=== PATIENT | female | born 1945 | race Hispanic/Latino ===

== ENCOUNTER → 2018-08-07 | Day surgery (SDC) | payer MEDICARE ==
[2018-08-03 11:26] LABS: BASOPHILS % 0.4 % (0.0-1.0); EOSINOPHILS # (AUTO) 0.1 (0.0-0.4); EOSINOPHILS % 1.7 % (0.0-6.0); HEMATOCRIT 42.9 % (34.2-44.1); LYMPHOCYTES # (AUTO) 2.3 (1.0-3.2); LYMPHOCYTES % 32.4 % (18.0-39.1); MEAN CORPUSCULAR HEMOGLOBIN 28.2 pg (28-32); MEAN CORPUSCULAR HGB CONC 32.6 g/dL (31-35); MEAN CORPUSCULAR VOLUME 86.5 fL (81-99); MONOCYTES # (AUTO) 0.6 (0.2-0.8); MONOCYTES % 8.9 % (4.4-11.3); NEUTROPHILS # (AUTO) 4.1 (2.1-6.9); NEUTROPHILS % 56.3 % (38.7-80.0); PLATELET COUNT 163 x10e3/uL (140-360); RED BLOOD COUNT 4.96 x10e6/uL (3.6-5.1); RED CELL DISTRIBUTION WIDTH 13.1 % (11.7-14.4)
--- NOTE | 2018-08-03 11:36 | Diagnostic Imaging Report ---
EXAMINATION: PA and lateral views of the chest. COMPARISON: None CLINICAL HISTORY: Preoperative evaluation, carpal tunnel surgery DISCUSSION: Lines/tubes: None. Lungs: The lungs are well inflated and clear. No pneumonia or pulmonary edema. Pleura: No pleural effusion or pneumothorax. Heart and mediastinum: The cardiomediastinal silhouette is normal. Bones and soft tissues: No acute bony abnormalities. IMPRESSION: No acute cardiopulmonary abnormalities. Signed by: Dr. Dao Edmondson M.D. on 08/03/2018 11:33 AM
[2018-08-03 11:53] LABS: ANION GAP 15.1 mmol/L (8-16); CALCIUM 9.8 mg/dL (8.4-10.2); CREATININE, SERUM 0.95 mg/dL (0.57-1.11); POTASSIUM 5.1 mmol/L (3.5-5.1)
[~2018-08-07] MED LIST: CARVEDILOL12.5 MG PO; CEFAZOLIN SOD 1 GM/NS 50ML 50 ML IV ONE; CRESTOR10 MG PO; DEXAMETHASONE SOD PHOS INJ 4 MG/ML VIAL ONE; FENTANYL CITRATE/PF 100MCG/2 ML INJ ONE; GLIPIZIDE5 MG PO; KETOROLAC TROMETHAMINE 30 MG/ML VIAL ONE; LIDOCAINE HCL 2% LOCAL INJ 5 ML SDV VIAL INJ ONE; LISINOPRIL10 MG PO; LOSARTAN POTAS100 MG PO; MECLIZINE HCL12.5 MG PO; MEPERIDINE HCL INJ 25 MG/ML VIAL ONE; NAPROXEN250 MG PO; OMEPRAZOLE40 MG PO; ONDANSETRON HCL INJ 2MG/ML 2ML 2 MG/ML VIAL ONE; PANTOPRAZOLE SO40 MG PO; PROPOFOL IV EMULSION 10 MG/ML 20 ML VIAL ONE; SEVOFLURANE INHAL SOLN 250 ML PEN BTL ONE; SIMVASTATIN20 MG PO; TOPAMAX25 MG PO; ULTRAM50 MG PO
--- OUTSIDE RECORDS SUMMARY | 2018-08-07 07:28 | XMS REPORT ---
Author [facility] Address Unknown Phone Unavailable Care Team Providers Care Agricultural Extension Agent Name Role Phone MAGI NATION Unavailable Unavailable Problems This patient has no known problems. Allergies, Adverse Reactions, Alerts This patient has no known allergies or adverse reactions. Medications This patient has no known medications. Results Test Description Test Time Test Comments Text Results Atomic Results Result Comments CHEST 2 VIEWS 2018-08-03 11:31:00 [facility] [address] [place] [address] Patient Name: LILY PALACIO MR #: [id number] : 1945 Age/Sex: 72/F Req #: [id number] Adm Physician: Ordered by: MAGI NATION MD Report #: [id number] Location: OR Room/Bed: Procedure: [id number] DX/CHEST 2 VIEWS Exam Date: 08/03/18 Exam Time: 1116 REPORT STATUS: Signed EXAMINATION: PA and lateral views of the chest. COMPAR GITA: None CLINICAL HISTORY: Preoperative evaluation, carpal tunnel surgery DISCUSSION: Lines/tubes: None. Lungs: The lungs are well inflated and clear. No pneumonia or pulmonary edema. Pleura: No pleural effusion or pneumothorax. Heart and mediastinum: The cardiomediastinal silhouette is normal. Bones and soft tissues: No acute bony abnormalities. IMPRESSION: No acute cardiopulmonary abnormalities. Signed by: Dr. Chandler Javier M.D. on 08/03/2018 11:33 AM Dictated By: CHANDLER JAVIER MD [id number] Transcribed By: THELMA on 08/03/18 113 COPY TO: MAGI NATION MD
--- OUTSIDE RECORDS SUMMARY | 2018-08-07 07:28 | XMS REPORT | Continuity of Care Document ---
Author Author [facility] Interface Address Unknown Phone Unavailable Problems Problem Status Onset Date Classification Date Reported Comments Source M79.672 - PAIN IN LEFT FOOT Active 11/13/2015 SANDIE Begum Medications Medication Details Route Status Patient Instructions Ordering Provider Order Date Source Allergies, Adverse Reactions, Alerts Substance Category Reaction Severity Reaction type Status Date Reported Comments Source Immunizations Immunization Date Given Site Status Last Updated Comments Source Results Order Name Results Value Reference Range Date Interpretation Comments Source Digital Mammo Screening Chaz MA Digital Mammo Screening Chaz MA - DIGITAL MAMMO SCREENING CHAZ MA BILATERAL DIGITAL SCREENING MAMMOGRAM WITH CAD: 12/07/2015 CLINICAL: Z12.39 Encounter For Other Screening For Malignant Neoplasm Of Breast. Current study was evaluated with a Computer Aided Detection (CAD) system. Comparison is made to exam dated: 12/01/2014 mammogram - [facility]. The tissue of both breasts is almost entirely fat. There are benign calcifications in both breasts. No significant masses, calcifications, or other findings are seen in either breast. There has been no significant interval change. IMPRESSION: BENIGN There is no mammographic evidence of malignancy. A 1 year screening mammogram is recommended. Sabi Brand M.D. to/penrad:12/08/2015 08:10:01 Gift Shop Clerk: Corin MAHAJAN(Bisi)(Juan Alberto), [facility] This exam was dictated and interpreted by [id number] at [facility]. letter sent: Normal exam Mammogram BI-RADS: 2 Benign 12/07/2015 - - Read by: Sabi Brand MD Dictated Date/time: 12/08/15 08:10 Electronically Signed by: Sabi Brand MD 12/08/15 08:10 FINAL REPORT SANDIE Begum Foot 2 views DX Foot 2 views DX Left Foot x-ray series 2 views History: 70-year-old female with left foot pain. Comparison: None. Findings: There is no evidence for fracture or osseous destruction. Mild osteoarthritic changes seen at the forefoot the interphalangeal joint spaces are narrow. The metatarsals appear intact. The mid tarsal bones and hindfoot appear normal. The plantar arch is maintained. No radiopaque foreign bodies are seen. 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 No acute bone abnormalities. 11/13/2015 - - Read by: Lon Reyes MD Dictated Date/time: 11/13/15 12:12 Electronically Signed by: Lon Reyes 11/13/15 12:13 FINAL REPORT SANDIE Begum Vital Signs Vital Sign Value Date Comments Source Encounters Location Location Details Encounter Type Encounter Number Reason For Visit Attending Provider ADM Date DC Date Status Source Procedures Procedure Code Date Perfomer Comments Source
--- NOTE | 2018-08-07 10:17 | Operative Report ---
DATE OF PROCEDURE: August 07, 2018 FAMILY CONSUMER SCIENCE TEACHER: None PREOPERATIVE DIAGNOSIS: Right carpal tunnel syndrome. POSTOPERATIVE DIAGNOSIS: Right carpal tunnel syndrome. PROCEDURE: Right endoscopic carpal tunnel release. INDICATIONS: The patient is a 72-year-old woman who has clinic signs and symptoms consistent with right carpal tunnel syndrome. She has failed conservative management and would like to proceed with a right carpal tunnel release. The risks and benefits have been explained. She states she understands and wishes to proceed. PROCEDURE: The patient was brought to the operating room. She was placed under general anesthetic. Prophylactic antibiotics were given in the holding area. The upper extremity was prepped and draped in a sterile manner. A well-padded tourniquet was placed on the upper arm and inflated to 250 mmHg. An operative time out was performed. A 1-cm incision was made over the flexion crease of the wrist. The palmaris longus was retracted to the radial side of the wound. The flexor retinaculum was elevated and incised with a pair of sharp tenotomy scissors. An elevator was used to tease the tenosynovium off the undersurface of the transverse carpal ligament. Dilators were placed, and the hook of the hamate was palpated. The Micro-Aire endoscope was then placed into the carpal tunnel. The undersurface of the ligament was cleanly visualized without evidence of soft tissue interposition. The knife was deployed, and the ligament was cut from distal to proximal. Full-thickness cut was noted. The proximal retinaculum was then incised under direct visualization using a pair of blunt Metzenbaum scissors. The wound was irrigated and closed with 2 interrupted 4-0 nylon stitches. A sterile bandage was applied, and the patient was extubated. The patient was transferred to the recovery room in stable condition. Blood loss was less than 5 mL, and at the end of the procedure needle and sponge counts were correct. Job#: [id number] DARCY
[2018-08-07 11:15] VITALS: BP 107/55
== END | disposition home or self-care (01) ==
LOC: OR 07:26
PROVIDERS: ATTEND Specialist
DX: G56.01 Carpal tunnel syndrome, right upper limb (principal); I10 Essential (primary) hypertension; E11.9 Type 2 diabetes mellitus without complications; Z79.84 Long term (current) use of oral hypoglycemic drugs; K21.9 Gastro-esophageal reflux disease without esophagitis; M75.41 Impingement syndrome of right shoulder; Z01.810 Encounter for preprocedural cardiovascular examination; Z01.812 Encounter for preprocedural laboratory examination; Z01.818 Encounter for other preprocedural examination; Z88.5 Allergy status to narcotic agent; Z88.2 Allergy status to sulfonamides
CPT/HCPCS: 29848; 36415 ×2; 71046; 80048; 82948; 85025; 93005; J0690; J1100; J1885; J2001; J2175; J2405; J2704

== ENCOUNTER → 2020-04-28 | Day surgery (SDC) | payer MEDICARE, OTHER ==
[2020-04-23 13:49] LABS: BASOPHILS % 0.5 % (0.0-1.0); EOSINOPHILS # (AUTO) 0.1 (0.0-0.4); EOSINOPHILS % 1.7 % (0.0-6.0); HEMATOCRIT 42.4 % (34.2-44.1); HEMOGLOBIN 13.7 g/dL (12.0-16.0); LYMPHOCYTES # (AUTO) 2.5 (1.0-3.2); LYMPHOCYTES % 33.9 % (18.0-39.1); MEAN CORPUSCULAR HEMOGLOBIN 27.8 pg (28-32); MEAN CORPUSCULAR HGB CONC 32.3 g/dL (31-35); MONOCYTES # (AUTO) 0.7 (0.2-0.8); MONOCYTES % 9.6 % (4.4-11.3); NEUTROPHILS % 53.9 % (38.7-80.0); PLATELET COUNT 198 x10e3/uL (140-360); RED BLOOD COUNT 4.93 x10e6/uL (3.6-5.1)
--- NOTE | 2020-04-23 14:06 | Diagnostic Imaging Report ---
Exam: CHEST 2 VIEWS Date: 04/23/2020 2:02 PM INDICATION: ^[id number] ^[id number] ^PRE OP Comparison: 08/03/2018 FINDINGS: Lines/Tubes:Stable cholecystectomy clips in the right upper quadrant. Lungs:The lungs are well inflated. No focal consolidation or pulmonary edema. Pleura:No pleural effusion. No pneumothorax. Heart/Mediastinum:The cardiomediastinal silhouette is normal in size and contour. Bones/Soft Tissues: No acute osseous abnormality. Upper abdomen: Unremarkable. IMPRESSION: Stable exam without acute intrathoracic process. Signed by: Steve Medina MD on 04/23/2020 2:03 PM
[2020-04-23 14:17] LABS: ANION GAP 12.9 mmol/L (8-16); CALCIUM 9.5 mg/dL (8.4-10.2); CREATININE, SERUM 1.11 mg/dL (0.57-1.11); POTASSIUM 3.9 mmol/L (3.5-5.1)
[~2020-04-28] MED LIST changes: +ACETAMINOPHEN325 M1 PO; +ALENDRONATE SOD70 MG PO; +ASPIRIN81 MG PO; +CELEBREX100 MG PO; +DILTIAZEM 24HR120 M1 PO; +HYDROMORPHONE 1MG/1ML INJ ONE; -KETOROLAC TROMETHAMINE 30 MG/ML VIAL ONE; +LIPITOR10 MG PO; +VIT B12 PO; +VIT D2 PO
[2020-04-28 09:45] VITALS: BP 135/64
--- NOTE | 2020-04-28 11:04 | Operative Report ---
DATE OF PROCEDURE: 04/28/2020 SURGEON: Dmitry Blanco MD SOLAR THERMAL TECHNICIAN: Mendez Robles PA-C. PREOPERATIVE DIAGNOSIS: Right knee medial meniscal tear. POSTOPERATIVE DIAGNOSIS: Right knee medial meniscal tear. PROCEDURE: Right knee arthroscopy, partial medial meniscectomy. INDICATIONS: The patient is a 74-year-old lady, who has clinic signs and mechanical symptoms consistent with a tear of the medial meniscus in her right knee. She has failed conservative management and would like to proceed with arthroscopy. She is familiar with the procedure, in that she had similar symptoms in her left knee that responded to arthroscopy. We have reviewed the risks and benefits of the procedure. All of her questions have been answered. She states she understands and wishes to proceed. PROCEDURE IN DETAIL: The patient was brought to the operating room and placed under general anesthetic. Her right lower extremity was prepped and draped in a sterile manner. A tourniquet was placed on the upper thigh and inflated to 300 mmHg. A preoperative time-out was performed. Standard arthroscopy portals were established. The knee was insufflated with sterile saline and systematically inspected. The patellofemoral groove and suprapatellar pouch were unremarkable. The medial and lateral gutter were inspected and noted to be free of loose bodies. There was minimal arthritic changes. The medial compartment was inspected and probed. There was a complex tear of the posterior horn of the medial meniscus with a radial fragment. This was debrided back to a stable margin using a combination of biting forceps and a mechanical shaver. The articular surfaces of the medial femoral condyle and medial tibial plateau were well preserved. Less than 15% of the meniscus was excised. The cruciate ligaments were inspected and probed. There was no abnormality. The lateral compartment was inspected. This was tight, but there was no evidence of any significant tear of the lateral meniscus. There were some minor fraying of the free edge of the lateral meniscus. The knee was thoroughly irrigated. The arthroscopic instruments were removed. The portal incisions were closed with nylon stitches. A sterile bandage was applied. There was no blood loss and all needle and sponge counts were correct. Dmitry Blanco MD DR/YUMIKO /[id number]
== END | disposition home or self-care (01) ==
LOC: OR 05:20
PROVIDERS: ATTEND Specialist
DX: S83.231A Complex tear of medial meniscus, current injury, right knee, initial encounter (principal); E11.22 Type 2 diabetes mellitus with diabetic chronic kidney disease; I12.9 Hypertensive chronic kidney disease with stage 1 through stage 4 chronic kidney disease, or unspecified chronic kidney disease; N18.9 Chronic kidney disease, unspecified; W19.XXXA Unspecified fall, initial encounter; Z88.6 Allergy status to analgesic agent; Z88.2 Allergy status to sulfonamides; Z01.810 Encounter for preprocedural cardiovascular examination; Z01.812 Encounter for preprocedural laboratory examination; Z01.818 Encounter for other preprocedural examination; Z11.59 Encounter for screening for other viral diseases; Z79.84 Long term (current) use of oral hypoglycemic drugs; Z79.82 Long term (current) use of aspirin; Z68.36 Body mass index [BMI] 36.0-36.9, adult
CPT/HCPCS: 29881; 36415 ×2; 71046; 80048; 82948; 85025; 93005; J0690; J1100; J1170; J2001; J2175; J2405; J2704; J3010; U0002

== ENCOUNTER → 2020-07-23 | Outpatient (CLI) | payer MEDICARE ==
[~2020-07-23] MED LIST changes: -CEFAZOLIN SOD 1 GM/NS 50ML 50 ML IV ONE; -DEXAMETHASONE SOD PHOS INJ 4 MG/ML VIAL ONE; -FENTANYL CITRATE/PF 100MCG/2 ML INJ ONE; -HYDROMORPHONE 1MG/1ML INJ ONE; -LIDOCAINE HCL 2% LOCAL INJ 5 ML SDV VIAL INJ ONE; -MEPERIDINE HCL INJ 25 MG/ML VIAL ONE; -ONDANSETRON HCL INJ 2MG/ML 2ML 2 MG/ML VIAL ONE; -PROPOFOL IV EMULSION 10 MG/ML 20 ML VIAL ONE; -SEVOFLURANE INHAL SOLN 250 ML PEN BTL ONE
== END ==
LOC: RAD 09:37
PROVIDERS: ATTEND Internal Medicine Critical Care Medicine
DX: U07.1 COVID-19 (principal); R06.00 Dyspnea, unspecified; I49.3 Ventricular premature depolarization; K21.9 Gastro-esophageal reflux disease without esophagitis; Z68.33 Body mass index [BMI] 33.0-33.9, adult
CPT/HCPCS: 71046

== ENCOUNTER → 2020-08-25 | Outpatient (CLI) | payer MEDICARE | LOC: RAD 10:33 | PROVIDERS: ATTEND Internal Medicine Critical Care Medicine | DX: U07.1 COVID-19 (principal); R09.02 Hypoxemia; R06.00 Dyspnea, unspecified; K21.9 Gastro-esophageal reflux disease without esophagitis; I49.3 Ventricular premature depolarization; Z68.33 Body mass index [BMI] 33.0-33.9, adult | CPT/HCPCS: 71046 ==

== ENCOUNTER → 2020-10-14 | Outpatient (CLI) | payer MEDICARE | LOC: RESP 08:56 | PROVIDERS: ATTEND Internal Medicine Critical Care Medicine | DX: U07.1 COVID-19 (principal); R09.02 Hypoxemia; R06.00 Dyspnea, unspecified; I49.3 Ventricular premature depolarization; K21.9 Gastro-esophageal reflux disease without esophagitis; Z68.33 Body mass index [BMI] 33.0-33.9, adult | CPT/HCPCS: 94060; 94664; 94727; 94729 ==

== ENCOUNTER → 2020-11-13 | Outpatient (CLI) | payer MEDICARE | LOC: RAD 12:24 | PROVIDERS: ATTEND Internal Medicine Critical Care Medicine | DX: U07.1 COVID-19 (principal); K21.9 Gastro-esophageal reflux disease without esophagitis; R09.02 Hypoxemia; R06.00 Dyspnea, unspecified; I49.3 Ventricular premature depolarization; Z68.33 Body mass index [BMI] 33.0-33.9, adult | CPT/HCPCS: 71046 ==

== ENCOUNTER → 2020-11-25 | Outpatient (CLI) | payer MEDICARE | LOC: RAD 14:03 | PROVIDERS: ATTEND Internal Medicine Critical Care Medicine | DX: U07.1 COVID-19 (principal); R06.00 Dyspnea, unspecified; R09.02 Hypoxemia; K21.9 Gastro-esophageal reflux disease without esophagitis; I49.3 Ventricular premature depolarization; J84.10 Pulmonary fibrosis, unspecified; Z68.33 Body mass index [BMI] 33.0-33.9, adult | CPT/HCPCS: 93306 ==

== ENCOUNTER → 2020-12-03 | Outpatient (CLI) | payer MEDICARE ==
[~2020-12-03] MED LIST changes: +IOPAMIDOL 370 MG/ML 200 ML INFUS..BTL INJ ONE; +SODIUM CHLORIDE 0.9% 500ML 500 ML ONE; +SODIUM CHLORIDE 0.9% 50ML 50 ML ONE
== END ==
LOC: CT 07:35
PROVIDERS: ATTEND Internal Medicine Gastroenterology
DX: R10.13 Epigastric pain (principal); R10.11 Right upper quadrant pain; R14.0 Abdominal distension (gaseous); K21.9 Gastro-esophageal reflux disease without esophagitis; K76.0 Fatty (change of) liver, not elsewhere classified; E11.9 Type 2 diabetes mellitus without complications; Z71.3 Dietary counseling and surveillance; E66.9 Obesity, unspecified
CPT/HCPCS: 71046; 74177; 96360; J7040; Q9967

== ENCOUNTER → 2021-03-01 | Day surgery (SDC) | payer MEDICARE ==
[2021-02-15 09:43] LABS: BASOPHILS # (AUTO) 0.1 (0.0-0.1); BASOPHILS % 0.8 % (0.0-1.0); EOSINOPHILS # (AUTO) 0.2 (0.0-0.4); EOSINOPHILS % 3.5 % (0.0-6.0); HEMATOCRIT 40.9 % (34.2-44.1); HEMOGLOBIN 12.9 g/dL (12.0-16.0); LYMPHOCYTES # (AUTO) 2.3 (1.0-3.2); LYMPHOCYTES % 38.8 % (18.0-39.1); MEAN CORPUSCULAR HEMOGLOBIN 28.2 pg (28-32); MEAN CORPUSCULAR HGB CONC 31.5 g/dL (31-35); MEAN CORPUSCULAR VOLUME 89.3 fL (81-99); MONOCYTES # (AUTO) 0.6 (0.2-0.8); MONOCYTES % 9.7 % (4.4-11.3); NEUTROPHILS # (AUTO) 2.8 (2.1-6.9); NEUTROPHILS % 46.9 % (38.7-80.0); PLATELET COUNT 175 x10e3/uL (140-360); RED BLOOD COUNT 4.58 x10e6/uL (3.6-5.1); RED CELL DISTRIBUTION WIDTH 12.6 % (11.7-14.4)
[2021-02-15 10:02] LABS: ANION GAP 13.6 mmol/L (8-16); CALCIUM 9.3 mg/dL (8.4-10.2); CREATININE, SERUM 1.26 mg/dL (0.57-1.11); POTASSIUM 4.6 mmol/L (3.5-5.1)
[~2021-03-01] MED LIST changes: +ACETAMINOPHEN 1000 MG/100 ML 100 ML IV ONE; +CYMBALTA30 MG PO; +DEXAMETHASONE SOD PHOS INJ 4 MG/ML VIAL ONE; +EPINEPHRINE 1 MG/ML 30ML VIAL ONE; +FENTANYL CITRATE/PF 100MCG/2 ML INJ ONE; +GLYCOPYRROLATE INJ 0.2 MG/ML VIAL ONE; +HEPARIN SOD/SOD CHLORIDE 1,000 ML ONE; -IOPAMIDOL 370 MG/ML 200 ML INFUS..BTL INJ ONE; +LIDOCAINE 2%/ EPINEPHRINE 20ML MDV ONE; +LIDOCAINE HCL 2% LOCAL INJ 5 ML SDV VIAL INJ ONE; +MIDAZOLAM HCL 2 MG/2 ML VIAL ONE; +MORPHINE SULFATE INJ 4 MG/ML INJ 1ML ONE; +NEOSTIGMINE 1 MG/ML 10ML VIAL ONE; +ONDANSETRON HCL INJ 2MG/ML 2ML 2 MG/ML VIAL ONE; +POVIDONE IODINE 0.05% 0.05 % ML PO ONE; +PROAIR HFA INH8.5 GM INH; +PROPOFOL IV EMULSION 10 MG/ML 20 ML VIAL ONE; +ROCURONIUM BROMIDE 10 MG/ML 5ML VIAL IV ONE; +ROPIVACAINE 0.5% 5 MG/ML 30 ML SDV ONE; +SEVOFLURANE INHAL SOLN 250 ML PEN BTL ONE; -SODIUM CHLORIDE 0.9% 500ML 500 ML ONE; -SODIUM CHLORIDE 0.9% 50ML 50 ML ONE; +TRAMADOL HCL 50 MG TAB ONE
[2021-03-01] MEDS: SODIUM CHLORIDE 0.9% 50ML 50 ML ONE (07:28)
[2021-03-01] MEDS: FENTANYL CITRATE/PF 100MCG/2 ML INJ ONE (10:05)
[2021-03-01] MEDS: MEPERIDINE HCL INJ 25 MG/ML VIAL ONE (10:33)
[2021-03-01 12:00] VITALS: BP 136/62
== END | disposition home or self-care (01) ==
LOC: OR 06:42
PROVIDERS: ATTEND Specialist
DX: M75.122 Complete rotator cuff tear or rupture of left shoulder, not specified as traumatic (principal); M75.22 Bicipital tendinitis, left shoulder; M94.212 Chondromalacia, left shoulder; G47.33 Obstructive sleep apnea (adult) (pediatric); E11.22 Type 2 diabetes mellitus with diabetic chronic kidney disease; N18.9 Chronic kidney disease, unspecified; Z88.6 Allergy status to analgesic agent; Z88.2 Allergy status to sulfonamides; Z01.810 Encounter for preprocedural cardiovascular examination; Z01.812 Encounter for preprocedural laboratory examination; Z20.822 Contact with and (suspected) exposure to COVID-19; Z79.84 Long term (current) use of oral hypoglycemic drugs; Z68.35 Body mass index [BMI] 35.0-35.9, adult
CPT/HCPCS: 29827; 36415 ×2; 80048; 82948; 85025; 93005; C1713; J0131; J0690; J1100; J2001 ×2; J2175; J2250; J2270; J2405; J2704; J2710; J2795; J3010; U0002 ×2